=== PATIENT | female | born 1975 | race Caucasian/White ===

== ENCOUNTER 2022-11-04 09:52 | Inpatient (IN) | payer BC ==
--- NOTE | 2022-11-04 11:36 | ED ---
Anxiety HPI - General Chief Complaint: Anxiety Stated Complaint: Anxiety Time Seen by Provider: 11/04/22 11:24 Source: patient, RN notes reviewed Mode of arrival: ambulatory - History of Present Illness Initial Comments: Patient is a 46-year-old female presenting to the emergency room with complaints of feeling overwhelmed, tearful and anxious. She reports that she has had had no significant sleep in the last 72 hours. She states that she does follow with a therapist and primary care provider who prescribes Lexapro. Her last dose increase was in March of last year. She has not had any recent dose changes or adjunct therapy. She reports the symptoms she is experiencing now are similar to what she experienced when she had a titration of her medication in March. She is estranged from most of her family and does report some increased stress and overwhelmed feeling regarding her family situation. She denies any suicidal thoughts, homicidal thoughts, hallucinations or delusions. With the exception of her past medical diagnoses of depression, anxiety, PTSD and ADHD she has no other significant past medical history. - Related Data Home Medications: Home Medications Medication Instructions Recorded Confirmed Albuterol Sulfate [Albuterol 1 puff PO RT-Q4H PRN 11/04/22 11/04/22 Sulfate Hfa] Buprenorphine/Naloxone 8Mg/2Mg 0.33 film SL BID 11/04/22 11/04/22 [Suboxone 8-2Mg Film] Citalopram Hydrobromide [CeleXA] 40 mg PO HS 11/04/22 11/04/22 Dextroamphetamine/Amphetamine 30 mg PO BID 11/04/22 11/04/22 [Adderall] Montelukast [Singulair] 10 mg PO DAILY 11/04/22 11/04/22 Allergies/Adverse Reactions: Allergies Allergy/AdvReac Type Severity Reaction Status Date / Time No Known Allergies Allergy Verified 11/04/22 10:26 Review of Systems ROS Statement: Those systems with pertinent positive or pertinent negative responses have been documented in the HPI. ROS Other: All systems not noted in ROS Statement are negative. Past Medical History Past Medical History: No Reported History History of Any Multi-Drug Resistant Organisms: None Reported Past Surgical History: Section, Orthopedic Surgery, Tonsillectomy Additional Past Surgical History / Comment(s): rt foot Past Psychological History: ADD/ADHD, Anxiety, Depression, PTSD Smoking Status: Never smoker Past Alcohol Use History: None Reported Past Drug Use History: None Reported General Exam Limitations: no limitations General appearance: alert, in no apparent distress Head exam: Present: atraumatic, normocephalic, normal inspection Eye exam: Present: normal appearance, PERRL, EOMI. Absent: scleral icterus, conjunctival injection, periorbital swelling ENT exam: Present: normal exam, mucous membranes moist Neck exam: Present: normal inspection, full ROM Respiratory exam: Present: normal lung sounds bilaterally. Absent: respiratory distress, wheezes, rales, rhonchi, stridor Cardiovascular Exam: Present: normal rhythm, tachycardia (mild), normal heart sounds. Absent: systolic murmur, diastolic murmur, rubs, gallop, clicks GI/Abdominal exam: Present: soft, normal bowel sounds. Absent: distended, tenderness, guarding, rebound, rigid Extremities exam: Present: normal inspection. Absent: pedal edema, joint swelling Back exam: Present: normal inspection, full ROM Neurological exam: Present: alert, oriented X3, CN II-XII intact Psychiatric exam: Present: depressed, anxious. Absent: suicidal ideation Expanded Focused psych exam: Present: flight of ideas Skin exam: Present: warm, dry, intact, normal color. Absent: rash Course Vital Signs 11/04/22 10:22 Temperature 98.1 F Pulse Rate 115 H Respiratory 20 Rate Blood Pressure 147/58 O2 Sat by Pulse 97 Oximetry Medical Decision Making - Medical Decision Making Was pt. sent in by a medical professional or institution (, PA, ACCOUNTING DIRECTOR, urgent care, hospital, or senior care...) When possible be specific @ -No Did you speak to anyone other than the patient for history (EMS, parent, family, police, friend...)? What history was obtained from this source @ -No Did you review nursing and triage notes (agree or disagree)? Why? @ -I reviewed and agree with nursing and triage notes Were old charts reviewed (outside hosp., previous admission, EMS record, old EKG, old radiological studies, urgent care reports/EKG's, senior care records)? Report findings @ -No old charts were reviewed Differential Diagnosis (chest pain, altered mental status, abdominal pain women, abdominal pain men, vaginal bleeding, weakness, fever, dyspnea, syncope, hea dache, dizziness, GI bleed, back pain, seizure, CVA, palpatations, mental health, musculoskeletal)? @- Differential Mental Health Depression, anxiety, bipolar, psychosis, schizophrenia, borderline personality, situational depression, adjustment disorder, behavioral disorder, brain tumor, malingering, substance abuse, encephalopathy, medication reaction, dementia, hypothyroidism, degenerative neurologic disorder, lupus.... This is not meant to be all-inclusive list EKG interpreted by me (3pts min.). @ -None done X-rays interpreted by me (1pt min.). @ -None done CT interpreted by me (1pt min.). @ -None done U/S interpreted by me (1pt. min.). @ -None done What testing was considered but not performed or refused? (CT, X-rays, U/S, labs)? Why? @ -None What meds were considered but not given or refused? Why? @ -None Did you discuss the management of the patient with other professionals (professionals i.e. , PA, ACCOUNTING DIRECTOR, lab, RT, psych nurse, social sciences professor, tennis coach, teacher, chemistry technical officer, patient case coordinator)? Give summary @ -Yes, spoke with EPS nurse regarding her evaluation and recommendation of admission to inpatient psychiatric unit. Was smoking cessation discussed for >3mins.? @ -No Was critical care preformed (if so, how long)? @ -No Were there social determinants of health that impacted care today? How? (Homelessness, low income, unemployed, alcoholism, drug addiction, transportation, low edu. Level, literacy, decrease access to med. care, penitentiary, rehab)? @ -No Was there de-escalation of care discussed even if they declined (Discuss DNR or withdrawal of care, Hospice)? DNR status @ -No What co-morbidities impacted this encounter? (DM, HTN, Smoking, COPD, CAD, Cancer, CVA, ARF, Chemo, Hep., AIDS, mental health diagnosis, sleep apnea, morbid obesity)? @ -History of depression with anxiety Was patient admitted / discharged? Hospital course, mention meds given and route, prescriptions, significant lab abnormalities, going to OR and other pertinent info. @ -46-year-old female presenting to the emergency room with complaints of feeling overwhelmed, tearful and very anxious with lack of sleep over the last 24 hours. No suicidal thoughts, homicidal thoughts, hallucinations or delusions. Currently taking her SSRI as prescribed. Will obtain standard testing for psychiatric eval with urine drug screen along with breath alcohol level. No indication for any other diagnostic imaging or laboratory studies. Breath alcohol level 0.00. Patient placed in green psychiatric down with prolonging was removed. Will closely from a medical standpoint for psychiatric evaluation and maintain safety. Drug screen positive for THC. EPS evaluation completed and patient to be admitted to [facility] for further evaluation and treatment of severe depression with anxiety. Covid test negative. Will discharge in stable condition for admission to psychiatric unit for inpat ient treatment for severe depression with anxiety. Undiagnosed new problem with uncertain prognosis? @ -No Drug Therapy requiring intensive monitoring for toxicity (Heparin, Nitro, Insulin, Cardizem)? @ -No Were any procedures done? @ -No Diagnosis/symptom? @ -Depression with anxiety Acute, or Chronic, or Acute on Chronic? @ -Acute on chronic Uncomplicated (without systemic symptoms) or Complicated (systemic symptoms)? @ -Complicated Side effects of treatment? @ -No Exacerbation, Progression, or Severe Exacerbation? @ -Severe exacerbation Poses a threat to life or bodily function? How? (Chest pain, [place], [place], pneumonia, PE, COPD, DKA, ARF, appy, cholecystitis, CVA, Diverticulitis, Homicidal, Suicidal, threat to staff... and all critical care pts) @ -Yes, at risk for self harm. Case discussed with Dr. Pierce. - Lab Data Lab Results 11/04/22 11/04/22 Range/Units 11:54 15:00 Urine Opiates Screen Not Detected (NotDetected) Ur Oxycodone Screen Not Detected (NotDetected) Urine Methadone Screen Not Detected (NotDetected) Ur Propoxyphene Screen Not Detected (NotDetected) Ur Barbiturates Screen Not Detected (NotDetected) U Tricyclic Antidepress Not Detected (NotDetected) Ur Phencyclidine Scrn Not Detected (NotDetected) Ur Amphetamines Screen Not Detected (NotDetected) U Methamphetamines Scrn Not Detected (NotDetected) U Benzodiazepines Scrn Not Detected (NotDetected) Urine Cocaine Screen Not Detected (NotDetected) U Marijuana (THC) Screen Detected H (NotDetected) Coronavirus (PCR) Not Detected (Not Detectd) Disposition Clinical Impression: Anxiety and depression Disposition: TRANSFER TO PSYCH HOSP/UNIT Condition: Fair Is patient prescribed a controlled substance at d/c from ED?: No Referrals: None,Stated [Primary Care Provider] - 1-2 days Time of Disposition: 16:22 - Out of Hospital Transfer - Req. Specs Out of Hospital Transfer - Requested Specifics: Psychiatric Non-ICU ([facility])
[2022-11-04 12:46] LABS: Amphetamine Screen,Urine Not Detected (NotDetected); Barbiturate Screen,Urine Not Detected (NotDetected); Benzodiazepines Screen,Urine Not Detected (NotDetected); Cocaine Screen,Urine Not Detected (NotDetected); Methadone Screen, Urine Not Detected (NotDetected); Opiate Screen,Urine Not Detected (NotDetected); Oxycodone Screen, Urine Not Detected (NotDetected); Phencyclidine Screen,Urine Not Detected (NotDetected); Tricyclic Antidepressant,Urine Not Detected (NotDetected); Urn Cannabinoid Scrn Detected (NotDetected)
[2022-11-04] MEDS ORDERED: MAGNESIUM HYDROXIDE 2,400 MG/10 ML CUP PO PRN (22:09)
[2022-11-04] MEDS ORDERED: LORazepam 2 MG/ML INJ IM PRN (22:14)
[2022-11-04] MEDS ORDERED: LORazepam 1 MG TAB PO PRN (22:14)
[2022-11-04 23:37] LABS: Appearance,Urine Clear (Clear); Bacteria,Urine Rare /hpf; Bilirubin,Urine Negative (Negative); Blood,Urine Small (Negative); Color,Urine Light Yellow; Glucose,Urine (UA) Negative (Negative); Ketones,Urine 1+ (Negative); Leukocyte Esterase,Urine Negative (Negative); Nitrite,Urine Negative (Negative); PH, Urine 5.5 (5.0-8.0); Protein,Urine Negative (Negative); RBC,Urine 2 /hpf (0-5); Specific Gravity,Urine 1.005 (1.001-1.035); Squamous Epithelial Cell,Urine 1 /hpf (0-4); Urobilinogen,Urine <2.0 mg/dL (<2.0); WBC,Urine 1 /hpf (0-5)
[2022-11-05 09:41] LABS: Anisocytosis Slight; Basophils % (A) 0 %; Eosinophils # (A) 0.2 k/uL (0-0.7); Eosinophils % (A) 2 %; HGB 11.3 gm/dL (11.4-16.0); Hypochromasia Moderate; Lymphocytes # (A) 3.5 k/uL (1.0-4.8); Lymphocytes % (A) 26 %; MCH 25.4 pg (25.0-35.0); MCHC 31.4 g/dL (31.0-37.0); MCV 80.9 fL (80.0-100.0); Mean Platelet Volume 7.6; Monocytes # (A) 0.6 k/uL (0-1.0); Monocytes % (A) 5 %; Neutrophils % (A) 67 %; Platelet Count 385 k/uL (150-450); RBC 4.45 m/uL (3.80-5.40); RDW 17.1 % (11.5-15.5); WBC 13.5 k/uL (3.8-10.6)
[2022-11-05 09:54] LABS: ALT 58 U/L (4-34); AST 38 U/L (14-36); African American GFR (CKD) >90 (>60 ml/min/1.73 sqM); Albumin 4.7 g/dL (3.5-5.0); Alkaline Phosphatase 94 U/L (38-126); Anion Gap 12 mmol/L; Blood Urea Nitrogen 10 mg/dL (7-17); Calcium 9.4 mg/dL (8.4-10.2); Carbon Dioxide 26 mmol/L (22-30); Chloride 101 mmol/L (98-107); Glucose 108 mg/dL (74-99); Non-African American GFR(CKD) >90 (>60 ml/min/1.73 sqM); Potassium 4.3 mmol/L (3.5-5.1); Sodium 139 mmol/L (137-145); Total Bilirubin 0.4 mg/dL (0.2-1.3); Total Protein 8.1 g/dL (6.3-8.2)
[2022-11-05] MEDS: BUPRENORPHINE-NALOX 8-2 MG TAB 1 EACH TAB.SUBL SL SCH ×2 (10:12→21:20)
[2022-11-05] MEDS: buPROPion XL 150 MG TAB.ER.24H PO SCH (10:15)
[2022-11-05] MEDS: MONTELUKAST 10 MG TAB PO SCH (10:15)
[2022-11-05] MEDS: busPIRone HCl 5 MG TAB PO SCH ×2 (10:15→21:15)
--- NOTE | 2022-11-05 10:31 | P.HP ---
Psychiatric H&P - . H&P Date: 11/05/22 History & Physical: Allergies Allergy/AdvReac Type Severity Reaction Status Date / Time No Known Allergies Allergy Verified 11/04/22 10:26 Vital Signs Temp 98.3 F 11/04/22 23:47 Pulse 103 H 11/05/22 00:33 Resp 16 11/05/22 00:33 BP 148/65 11/04/22 23:47 Pulse Ox 98 11/04/22 23:47 FiO2 Intake & Output 11/04/22 11/05/22 11/05/22 18:59 06:59 18:59 Weight 90.718 kg 87.657 kg 88.5 kg Other: Voiding Method Toilet Laboratory Last Values WBC 13.5 k/uL (3.8-10.6) H 11/05/22 09:13 RBC 4.45 m/uL (3.80-5.40) 11/05/22 09:13 Hgb 11.3 gm/dL (11.4-16.0) L 11/05/22 09:13 Hct 36.0 % (34.0-46.0) 11/05/22 09:13 MCV 80.9 fL (80.0-100.0) 11/05/22 09:13 MCH 25.4 pg (25.0-35.0) 11/05/22 09:13 MCHC 31.4 g/dL (31.0-37.0) 11/05/22 09:13 RDW 17.1 % (11.5-15.5) H 11/05/22 09:13 Plt Count 385 k/uL (150-450) 11/05/22 09:13 MPV 7.6 11/05/22 09:13 Neutrophils % 67 % 11/05/22 09:13 Lymphocytes % 26 % 11/05/22 09:13 Monocytes % 5 % 11/05/22 09:13 Eosinophils % 2 % 11/05/22 09:13 Basophils % 0 % 11/05/22 09:13 Neutrophils # 9.0 k/uL (1.3-7.7) H 11/05/22 09:13 Lymphocytes # 3.5 k/uL (1.0-4.8) 11/05/22 09:13 Monocytes # 0.6 k/uL (0-1.0) 11/05/22 09:13 Eosinophils # 0.2 k/uL (0-0.7) 11/05/22 09:13 Basophils # 0.0 k/uL (0-0.2) 11/05/22 09:13 Hypochromasia Moderate 11/05/22 09:13 Anisocytosis Slight 11/05/22 09:13 Sodium 139 mmol/L (137-145) 11/05/22 09:13 Potassium 4.3 mmol/L (3.5-5.1) 11/05/22 09:13 Chloride 101 mmol/L (98-107) 11/05/22 09:13 Carbon Dioxide 26 mmol/L (22-30) 11/05/22 09:13 Anion Gap 12 mmol/L 11/05/22 09:13 BUN 10 mg/dL (7-17) 11/05/22 09:13 Creatinine 0.58 mg/dL (0.52-1.04) 11/05/22 09:13 Est GFR (CKD-EPI)AfAm >90 (>60 ml/min/1.73 sqM) 11/05/22 09:13 Est GFR (CKD-EPI)NonAf >90 (>60 ml/min/1.73 sqM) 11/05/22 09:13 Glucose 108 mg/dL (74-99) H 11/05/22 09:13 Calcium 9.4 mg/dL (8.4-10.2) 11/05/22 09:13 Total Bilirubin 0.4 mg/dL (0.2-1.3) 11/05/22 09:13 AST 38 U/L (14-36) H 11/05/22 09:13 ALT 58 U/L (4-34) H 11/05/22 09:13 Alkaline Phosphatase 94 U/L (38-126) 11/05/22 09:13 Total Protein 8.1 g/dL (6.3-8.2) 11/05/22 09:13 Albumin 4.7 g/dL (3.5-5.0) 11/05/22 09:13 Urine Color Light Yellow 11/04/22 22:45 Urine Appearance Clear (Clear) 11/04/22 22:45 Urine pH 5.5 (5.0-8.0) 11/04/22 22:45 Ur Specific [place] 1.005 (1.001-1.035) 11/04/22 22:45 Urine Protein Negative (Negative) 11/04/22 22:45 Urine Glucose (UA) Negative (Negative) 11/04/22 22:45 Urine Ketones 1+ (Negative) H 11/04/22 22:45 Urine Blood Small (Negative) H 11/04/22 22:45 Urine Nitrite Negative (Negative) 11/04/22 22:45 Urine Bilirubin Negative (Negative) 11/04/22 22:45 Urine Urobilinogen <2.0 mg/dL (<2.0) 11/04/22 22:45 Ur Leukocyte Esterase Negative (Negative) 11/04/22 22:45 Urine RBC 2 /hpf (0-5) 11/04/22 22:45 Urine WBC 1 /hpf (0-5) 11/04/22 22:45 Ur Squamous Epith Cells 1 /hpf (0-4) 11/04/22 22:45 Urine Bacteria Rare /hpf (None) H 11/04/22 22:45 Urine Opiates Screen Not Detected (NotDetected) 11/04/22 11:54 Ur Oxycodone Screen Not Detected (NotDetected) 11/04/22 11:54 Urine Methadone Screen Not Detected (NotDetected) 11/04/22 11:54 Ur Propoxyphene Screen Not Detected (NotDetected) 11/04/22 11:54 Ur Barbiturates Screen Not Detected (NotDetected) 11/04/22 11:54 U Tricyclic Antidepress Not Detected (NotDetected) 11/04/22 11:54 Ur Phencyclidine Scrn Not Detected (NotDetected) 11/04/22 11:54 Ur Amphetamines Screen Not Detected (NotDetected) 11/04/22 11:54 U Methamphetamines Scrn Not Detected (NotDetected) 11/04/22 11:54 U Benzodiazepines Scrn Not Detected (NotDetected) 11/04/22 11:54 Urine Cocaine Screen Not Detected (NotDetected) 11/04/22 11:54 U Marijuana (THC) Screen Detected (NotDetected) H 11/04/22 11:54 Coronavirus (PCR) Not Detected (Not Detectd) 11/04/22 15:00 11/05/22 10:16 Patient is a 46-year-old female presenting to the emergency room with complaints of feeling overwhelmed, tearful and anxious. She reports that she has had had no significant sleep in the last 72 hours. She states that she does follow with a therapist and primary care provider who prescribes Lexapro. Her last dose increase was in March of last year. She has not had any recent dose changes or adjunct therapy. In addition to the Lexapro she takes Adderall IR 30 mg twice a day and Suboxone sublingual 12/27 she takes half of it 3 times a day She reports the symptoms she is experiencing now are similar to what she experienced when she had a titration of her medication in March. Current stressors: She is estranged from most of her family and does report some increased stress and overwhelmed feeling regarding her family situation. Her father recently of cancer and she has been feeling that loss then her 's father suddenly and unexpectedly and her has been under a lot of stress and that made it worse and she feels like their relationship is somewhat estranged but workable. She has been worried about her aunt and uncle who were taking care of her paternal grandmother. Recently she came up to [place] where the headquarters of her job is and noticed that administration are disorganized and part of her feels like she needs to fix all these things. When she was up here she was talking to a cousin who told her she needed to go over to the aunt and uncle's house and try to figure out how to be of help. She did this but couldn't figure out how to help and it was just overwhelming. Current symptoms: She has responded to all these situations into her own codependent need to fix all of them by having a breakdown in depression. She denies any suicidal thoughts, homicidal thoughts, hallucinations or delusions. She feels that the Lexapro is no longer working and in fact she has been taking 40 of Celexa rather than 20 of Lexapro but that's basically the same thing. She is tearful and labile moods irritable and has trouble turning off negative feelings. She also has trouble concentrating she is slow to think trouble retrieving thing she already knows trouble organizing. She also does not feel like doing things, makes herself do them but is difficult, finds no enjoyment in them. She also has a great deal of difficulty with sleep. (These symptoms suggest that she now has deficiency in serotonin norepinephrine and dopamine.) Past history: With the exception of her past medical diagnoses of depression, anxiety, PTSD and ADHD she has no other significant past medical history. She remembers being depressed many years ago but cannot remember what medicine she was tried on. She was somewhat depressed last March but pulled out of that and then is crashed again with all the current stresses. She denies now or in the past any manic episodes or any psychotic symptoms. Social history: The patient was from a troubled family and both her parents struggle with depression and alcohol mom side especially had this bad enough depression to require hospitalizations her dad does not use any alcohol he of cancer recently the patient has mostly male siblings who do not jump in and help out with family issues. She was before for 4 years that man gave her 2 children she has a daughter 25 and a daughter 20 to the 25-year-old is the marriage broke up and now she's been again for 6 years no children with him the 22-year-old daughter struggles with PTSD as well as anxiety and depression. 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 She was only supposed to be in [place] to last and then got involved with the family issues and was offered opportunities stay longer decided to do so but is finding herself more and more dysfunctional. Mental status exam patient has serious sad affect Slow responses Difficulty recalling thing she notes. For example when asked the name the [place] she got leg [place] and [place] but couldn't remember any of the others including [place]. Short-term memory is slightly impaired she only remember 2 and half of 3 objects after 3 minutes. General information is well above average she could name the presidents at least back to [place] but was so slow I cut her off at that point. She was able to spell world backward she started out with and then caught herself and very slowly she got DL paused for a minute got DR hesitated for minute got the OW. Abstract thought is good for cats and snakes she said they're reclusive they are observant and they are sly. To subtract 7 from 93 she had to use her fingers she started by saying 80 then she said no and she couldn't do it so used her fingers and got 86 For the grass looks greener on those thoughts side of the fence she abstracted "look for better things" Diagnosis: Major depression recurrent severe nonpsychotic Plan I believe she needs brief stabilization she needs to get on Wellbutrin to augment the Celexa and she needs BuSpar to augment some going to cut back on the Celexa from 40-30 and at BuSpar which will effectively be similar to increasing to 60 the Wellbutrin will help with focus we do not have Adderall so I'll give for Ritalin 20 3 times a day while in the hospital and we don't have the Suboxone strips so we will use the tablets. We will also add some melatonin for sleep she will probably need trazodone.
[2022-11-05] MEDS: NON FORMULARY DRUG (Dextroamphetamine/Amphetamine [Adderall] 30 MG Tablet) PO SCH ×2 (11:18→21:13)
[2022-11-05] MEDS: ACETAMINOPHEN TAB 325 MG TAB PO PRN (17:27)
[2022-11-05] MEDS ORDERED: CITALOPRAM HYDROBROMIDE 20 MG TAB PO SCH (21:00)
[2022-11-05] MEDS ORDERED: CITALOPRAM HYDROBROMIDE 10 MG TAB PO SCH (21:00)
[2022-11-05] MEDS: MELATONIN 5 MG TABLET PO SCH (21:18)
[2022-11-06] MEDS: MAG HYDROX/AL HYDROX/SIMETH 30 ML CUP PO PRN ×2 (04:09→11:06)
[2022-11-06 07:30] LABS: Chol/HDL Ratio 4.01 Ratio; LDL Cholesterol,Calculated 111.2 mg/dL (0.0-131.0); VLDL Calculation 17.22 mg/dL (5.00-40.00)
[2022-11-06] MEDS: BUPRENORPHINE-NALOX 8-2 MG TAB 1 EACH TAB.SUBL SL SCH ×2 (08:07→21:34)
[2022-11-06] MEDS: busPIRone HCl 5 MG TAB PO SCH (08:08)
[2022-11-06] MEDS: buPROPion XL 150 MG TAB.ER.24H PO SCH (08:08)
[2022-11-06] MEDS: MONTELUKAST 10 MG TAB PO SCH (08:08)
[2022-11-06] MEDS: NON FORMULARY DRUG (Dextroamphetamine/Amphetamine [Adderall] 30 MG Tablet) PO SCH ×2 (08:10→21:37)
--- NOTE | 2022-11-06 12:07 | P.PN ---
Progress Note - Text Progress Note Date: 11/06/22 Interval History: Patient was seen attending group and was directable and agreeable to speak with life insurance underwriter in the office. Currently, the patient reports that she continues to feel depressed and anxious. She reports that she only received approximately 3 hours of sleep last night. She reports that she has been dealing with increased stress and anxiety and has been having a difficult time coping with the passing of her father in February. She does report that she has been more irritable lately. She does state that she has been on her Celexa for an extended period of time (approximately one year), and has felt no significant improvement. The patient also reports that she has been experiencing significant nausea due to her new medications. She is currently not endorsing any suicidal or homicidal ideation, intention, and/or plan. She is not reporting any auditory or visual hallucinations. She is agreeable to discontinuing her Wellbutrin and BuSpar, and starting Remeron for management of depression, insomnia, nausea. Due to concerns for serotonin syndrome, we will cross titrate Celexa with Remeron. Patient expresses understanding. Mental Status Exam: General Appearance: Patient appears to be stated age is alert, directable, and cooperative. Behavior: Patient is calmly seated without any agitated behavior. Speech: Patient's speech is fluent and nonpressured. Mood/Affect: Mood is improving mildly, affect is congruent and constricted. Suicidality/Homicidality: Patient denies having any suicidal or homicidal ideation intent or plan. Perceptions: Patient denies any visual hallucinations and denies any auditory hallucinations Though content/process: There is no evidence of any delusional thought content and thought process is linear and goal-directed. Memory and concentration: AOX3, grossly intact for the purposes of this session Judgment and insight: Improving mildly Vital Signs Temp 98.5 F 11/06/22 08:10 Pulse 95 11/06/22 08:10 Resp 16 11/05/22 00:33 BP 131/60 11/06/22 08:10 Pulse Ox 98 11/04/22 23:47 FiO2 Intake & Output 11/05/22 11/06/22 11/06/22 18:59 06:59 18:59 Weight 88.5 kg Laboratory Results - Last 24 Hours 11/05/22 11/05/22 09:13 09:[address] Glu mg/dL 123 Hemoglobin A1c 5.9 Triglycerides 86.10 Cholesterol 171.00 LDL Cholesterol, Calc 111.2 VLDL Cholesterol, Calc 17.22 HDL Cholesterol 42.60 Cholesterol/HDL Ratio 4.01 Assessment Major depressive disorder, recurrent, severe, without psychotic features ADHD Plan: -Patient continues to meet criteria for inpatient psychiatric admission for symptom stabilization and safety. Patient has signed adult voluntary form and medication consent and was placed in patient's chart. -Medications: Discontinue Wellbutrin and BuSpar. Start Remeron 7.5 mg daily at bedtime for depression/insomnia/nausea. Decrease Celexa to 20 mg by mouth at bedtime for depression. We'll cross titrate with Remeron. -When necessary Ativan for agitation/aggression. -SW on board for discharge planning. Encouraged the patient to participate in milieu.
[2022-11-06] MEDS ORDERED: ALBUTEROL INHALER 60 PUFF/8 GM INHALER (MHU) INHALATION PRN (17:29)
--- NOTE | 2022-11-06 17:31 | P.CONS ---
History of Present Illness - Reason for Consult Consult date: 11/06/22 - History of Present Illness Patient is a 46-year-old female with PMH of asthma that presents the ED for mental health concerns. Patient has been admitted to the mental health unit for further management of symptoms. [facility] has been consulted for medical management of this patient Patient denies any complaints today. Asthma is well controlled with singulair and albuterol as needed. She reports not feeling well today. She complains of nausea but no vomiting. Able to eat a meal today. No changes in urination or bowel habits. No abdominal pain. Drinks alcohol socially. Smokes marijuana occasionally. Denies smoking cigarettes. General: non toxic, no distress, appears at stated age Derm: warm, dry Head: atraumatic, normocephalic, symmetric Eyes: EOMI, no lid lag, anicteric sclera Cardiovascular: S1S2 reg, no murmur Lungs: CTA bilateral, no rhonchi, no rales , no accessory muscle use Ext: no gross muscle atrophy, no edema, no contractures Neuro: CN 2-12 grossly intact, no focal neuro deficits Psych: Alert, oriented, appropriate affect Asthma Nausea Transaminits Leukocytosis Normocytic anemia CBC shows WBC count of 13.5 and hemoglobin of 11.3. CMP shows glucose of 108, AST of 38, ALT of 58. Hemoglobin A1c 5.9. Lipid panel within normal limits. UDS positive for ketones, small blood and rare bacteria. UDS positive for marijuana. COVID-19 negative. Reorder Albuterol inhaler Q4H PRN for SOB/wheezing. Zofran 4 mg PO BID PRN for N/V. Unknown etiology for transaminitis. Obtain acute hepatitis panel. Unknow etiology for leukocytosis. No signs of active infection. Continue to monitor. Transfuse if Hg < 7.0. Past Medical History Past Medical History: Asthma History of Any Multi-Drug Resistant Organisms: None Reported Past Surgical History: Section, Orthopedic Surgery, Tonsillectomy Additional Past Surgical History / Comment(s): 2 rt foot sx, lasix eye surgery Past Anesthesia/Blood Transfusion Reactions: No Reported Reaction Smoking Status: Never smoker - Past Family History Mother Additional Family Medical History / Comment(s): Pancreatitis, Anxiety/Depression Father Family Medical History: Cancer Additional Family Medical History / Comment(s): Bladder Cancer Medications and Allergies Home Medications Medication Instructions Recorded Confirmed Type Albuterol Sulfate [Albuterol 1 puff PO RT-Q4H PRN 11/04/22 11/04/22 History Sulfate Hfa] Buprenorphine/Naloxone 8Mg/2Mg 0.33 film SL BID 11/04/22 11/04/22 History [Suboxone 8-2Mg Film] Citalopram Hydrobromide [CeleXA] 40 mg PO HS 11/04/22 11/04/22 History Dextroamphetamine/Amphetamine 30 mg PO BID 11/04/22 11/04/22 History [Adderall] Montelukast [Singulair] 10 mg PO DAILY 11/04/22 11/04/22 History Allergies Allergy/AdvReac Type Severity Reaction Status Date / Time No Known Allergies Allergy Verified 11/04/22 10:26 Physical Exam Vitals: Vital Signs Temp Pulse BP 11/06/22 08:10 98.5 F 95 131/60 Results CBC & Chem 7: 11/05/22 09:13 11/05/22 09:13
[2022-11-06] MEDS: MELATONIN 5 MG TABLET PO SCH (21:34)
[2022-11-06] MEDS: CITALOPRAM HYDROBROMIDE 10 MG TAB PO SCH (21:34)
[2022-11-06] MEDS: MIRTAZAPINE 15 MG TAB PO SCH (21:37)
[2022-11-07 00:16] LABS: Glucose,Whole Blood 110 mg/dL (70-110)
[2022-11-07] MEDS: ONDANSETRON ODT 4 MG TAB PO PRN ×2 (01:06→09:01)
[2022-11-07] MEDS: ACETAMINOPHEN TAB 325 MG TAB PO PRN ×3 (01:06→13:34)
[2022-11-07] MEDS ORDERED: ONDANSETRON 4 MG/2 ML VIAL IM STA (01:40)
[2022-11-07] MEDS ORDERED: PROMETHAZINE SUPPOSITORY 12.5 MG SUPP RECTAL PRN (08:29)
[2022-11-07] MEDS: BUPRENORPHINE-NALOX 8-2 MG TAB 1 EACH TAB.SUBL SL SCH ×2 (09:01→20:39)
[2022-11-07] MEDS: NON FORMULARY DRUG (Dextroamphetamine/Amphetamine [Adderall] 30 MG Tablet) PO SCH ×2 (09:02→19:38)
[2022-11-07] MEDS: MONTELUKAST 10 MG TAB PO SCH (09:03)
--- NOTE | 2022-11-07 12:00 | P.PN ---
Progress Note - Text Progress Note Date: 11/07/22 Interval History: Patient was seen attending group and was directable and agreeable to speak with tag writer in the office. Currently, the patient expressed that she is experiencing severe nausea, headache, photophobia. She describes a throbbing headache that is starting at the back of her head. The patient reports that she feels extremely nauseous and is unable to take any medications orally. She states that she is unable to fully participate in the psychiatric interview. She reports low mood like to sleep it off today. She is denying any current suicidal or homicidal ideation. She is not reporting any auditory or visual hallucinations. Mental Status Exam: General Appearance: Patient appears to be stated age is alert, however disheveled, and malaised. Behavior: Patient ambulates slowly. Speech: Patient's speech is fluent and nonpressured. Mood/Affect: Mood is "terrible, nauseous." Affect is malaised. Suicidality/Homicidality: Patient denies having any suicidal or homicidal ideation intent or plan. Perceptions: Patient denies any visual hallucinations and denies any auditory hallucinations Though content/process: Patient is quite malaised and is focused on her headache and nausea. Memory and concentration: AOX3, grossly intact for the purposes of this session Judgment and insight: Improving mildly Vital Signs Temp 98.5 F 11/07/22 00:11 Pulse 115 H 11/07/22 00:11 Resp 18 11/07/22 00:11 BP 146/67 11/07/22 00:11 Pulse Ox 96 11/07/22 00:11 FiO2 Laboratory Results - Last 24 Hours 11/07/22 00:14 POC Glucose (mg/dL) 110 POC Glu Transport Coordinator ID Yvette Kim Assessment Major depressive disorder, recurrent, severe, without psychotic features ADHD Plan: -Patient continues to meet criteria for inpatient psychiatric admission for sym ptom stabilization and safety. Patient has signed adult voluntary form and medication consent and was placed in patient's chart. -Medications: Continue Remeron 7.5 mg daily at bedtime for depression/insomnia/nausea. Continue Celexa 20 mg by mouth at bedtime for depression -When necessary Ativan for agitation/aggression. -SW on board for discharge planning. Encouraged the patient to participate in milieu.
[2022-11-07 12:01] LABS: Hepatitis A Antibody IgM Nonreactive; Hepatitis B Core IgM Nonreactive; Hepatitis B Surface Antigen Nonreactive; Hepatitis C IgG Antibody Nonreactive
[2022-11-07] MEDS ORDERED: SUMAtriptan succinate 6 MG/0.5 ML VIAL SQ STA (13:36)
[2022-11-07] MEDS: MIRTAZAPINE 15 MG TAB PO SCH (20:38)
[2022-11-07] MEDS: MELATONIN 5 MG TABLET PO SCH (20:39)
[2022-11-07] MEDS: CITALOPRAM HYDROBROMIDE 10 MG TAB PO SCH (20:39)
[2022-11-08 06:47] VITALS: RESP 16
[2022-11-08] MEDS: BUPRENORPHINE-NALOX 8-2 MG TAB 1 EACH TAB.SUBL SL SCH ×2 (08:34→21:07)
[2022-11-08] MEDS: MONTELUKAST 10 MG TAB PO SCH (08:34)
[2022-11-08] MEDS: NON FORMULARY DRUG (Dextroamphetamine/Amphetamine [Adderall] 30 MG Tablet) PO SCH ×2 (08:39→20:50)
[2022-11-08] MEDS ORDERED: SUMAtriptan succinate 25 MG TAB PO PRN (11:18)
--- NOTE | 2022-11-08 12:12 | P.PN ---
Progress Note - Text Progress Note Date: 11/08/22 Interval History: Patient was seen in her room and was agreeable to speak with the functional tester typewriters in her room. Patient reports that she is feeling significantly better today after the administration of Imitrex yesterday. She continues to report some residual headache, photosensitivity, and nausea however states that it is much more tolerable today. She is currently not reporting any suicidal or homicidal ideation, intention, and/or plan. She is not reporting any auditory or visual hallucinations. She reports no paranoia or other delusions. She reports that she was able to sleep well last night after taking the Remeron. She does express anxiety in regards her discharge situation as she would be moving down to [place]. She is otherwise not reporting any acute concerns to this provider. Mental Status Exam: General Appearance: Patient appears to be stated age is alert, directable, and cooperative. Fair Hygiene and grooming. Behavior: Patient has good eye contact and normal psychomotor activity. Speech: Patient's speech is fluent and nonpressured. Mood/Affect: Mood is "better today." Affect is euthymic. Suicidality/Homicidality: Patient denies having any suicidal or homicidal ideation intent or plan. Perceptions: Patient denies any visual hallucinations and denies any auditory hallucinations Though content/process: No delusional thought content is endorsed. Thought process appears to be linear and logical in short conversation. Memory and concentration: AOX3, grossly intact for the purposes of this session Judgment and insight: Improving mildly Vital Signs Temp 97.7 F 11/08/22 06:14 Pulse 104 H 11/08/22 06:14 Resp 16 11/08/22 06:14 BP 137/77 11/08/22 06:14 Pulse Ox 96 11/07/22 00:11 FiO2 Assessment Major depressive disorder, recurrent, severe, without psychotic features ADHD Plan: -Patient continues to meet criteria for inpatient psychiatric admission for symptom stabilization and safety. Patient has signed adult voluntary form and medication consent and was placed in patient's chart. -Medications: Increase Remeron to 15 mg daily at bedtime for depression/insomnia/nausea. Continue Celexa 20 mg by mouth at bedtime for depression -When necessary, Imitrex for migraines -When necessary Ativan for agitation/aggression. -SW on board for discharge planning. Encouraged the patient to participate in milieu.
[2022-11-08] MEDS ORDERED: ONDANSETRON 4 MG/2 ML VIAL IM PRN (12:24)
[2022-11-08] MEDS: ACETAMINOPHEN TAB 325 MG TAB PO PRN (14:49)
[2022-11-08] MEDS: CITALOPRAM HYDROBROMIDE 10 MG TAB PO SCH (20:49)
[2022-11-08] MEDS: MELATONIN 5 MG TABLET PO SCH (20:50)
[2022-11-08] MEDS ORDERED: MIRTAZAPINE 15 MG TAB PO SCH (21:00)
[2022-11-09] MEDS: ONDANSETRON ODT 4 MG TAB PO PRN (01:10)
[2022-11-09 06:58] VITALS: BP 136/65; PULSE 88; TEMP 98.1
[2022-11-09] MEDS: MONTELUKAST 10 MG TAB PO SCH (08:43)
[2022-11-09] MEDS: NON FORMULARY DRUG (Dextroamphetamine/Amphetamine [Adderall] 30 MG Tablet) PO SCH (09:02)
[2022-11-09] MEDS: BUPRENORPHINE-NALOX 8-2 MG TAB 1 EACH TAB.SUBL SL SCH (09:03)
--- NOTE | 2022-11-09 11:31 | P.DS ---
Providers Date of admission: 11/04/22 22:03 Expected date of discharge: 11/09/22 Attending physician: Pedrito Bello MD Consults: 11/04/22 22:09 Consult Physician Routine Consulting Provider: Shawna Aguilera Consult Reason/Comments: medical management Do you want consulting provider notified?: Yes Primary care physician: Stated None - Discharge Diagnosis(es) (1) Major depressive disorder, recurrent episode, severe with anxious distress Current Visit: Yes Status: Acute Priority: High (2) ADHD Current Visit: Yes Status: Suspected Priority: Low Hospital Course: Admission HPI: Initial psychiatric evaluation was completed by Dr. Sotomayor 11/05/2022 who wrote: "Patient is a 46-year-old female presenting to the emergency room with complaints of feeling overwhelmed, tearful and anxious. She reports that she has had had no significant sleep in the last 72 hours. She states that she does follow with a therapist and primary care provider who prescribes Lexapro. Her last dose increase was in March of last year. She has not had any recent dose changes or adjunct therapy. In addition to the Lexapro she takes Adderall IR 30 mg twice a day and Suboxone sublingual 12/27 she takes half of it 3 times a day She reports the symptoms she is experiencing now are similar to what she experienced when she had a titration of her medication in March. Current stressors: She is estranged from most of her family and does report some increased stress and overwhelmed feeling regarding her family situation. Her father recently of cancer and she has been feeling that loss then her 's father suddenly and unexpectedly and her has been under a lot of stress and that made it worse and she feels like their relationship is somewhat estranged but workable. She has been worried about her aunt and uncle who were taking care of her paternal grandmother. Recently she came up to [employer] where the headquarters of her job is and noticed that administration are disorganized and part of her feels like she needs to fix all these things. When she was up here she was talking to a cousin who told her she needed to go over to the aunt and uncle's house and try to figure out how to be of help. She did this but couldn't figure out how to help and it was just overwhelming. Current symptoms: She has responded to all these situations into her own codependent need to fix all of them by having a breakdown in depression. She denies any suicidal thoughts, homicidal thoughts, hallucinations or delusions. She feels that the Lexapro is no longer working and in fact she has been taking 40 of Celexa rather than 20 of Lexapro but that's basically the same thing. She is tearful and labile moods irritable and has trouble turning off negative feelings. She also has trouble concentrating she is slow to think trouble retrieving thing she already knows trouble organizing. She also does not feel like doing things, makes herself do them but is difficult, finds no enjoyment in them. She also has a great deal of difficulty with sleep. (These symptoms suggest that she now has deficiency in serotonin norepinephrine and dopamine.) Hospital course: Upon admission to the unit patient was initially presenting as sad, overwhelmed, and anxious. Patient was however directable and agreeable to commence treatment. Patient got along well with other patients on the unit and followed unit protocol. Patient was compliant with the medications and denied any side effects throughout hospital course. Patient was started on buspar, celexa, and wellbutrin initially however due to concenrs for anxiety and nausea, she was switched to just celexa and remeron. Patient spoke of her stressors and engaged in therapy both group and individual. Patient was also seen by medical team for history and physical exam. The patient would experience significant nausea and migraine like headaches. She was given imitrex and zofran which provided relief. The patient was intermittently adherent with her suboxone which could lead to withdrawal symptoms. Patient was educated on this and expressed understanding. On the day of discharge, the patient is not reporting any suicidal or homicidal ideation, intention, and/or plan. She reports a desire to return back to [place] for continued therapy and outpatient treatment. She reports no access to firearms or other weapons. She has been observed by staff to sleep for approximately 6.5 hours at night despite reporting poor sleep. She reports no auditory or visual hallucinations. She denies any paranoia or other delusions. The patient did express a desire for more in-depth treatment however was educated on the difference between inpatient stabilization and outpatient psychotherapy and psychiatric care. She remains future and goal oriented with a strong desire to go home. In regards her general medical problems, the patient reports that she continues to express some mild nausea and headache however reports that it is tolerable. The patient does not have a significant history of substance abuse however was counseled at great length and abstaining from tobacco, alcohol, marijuana, and illicit drugs. She was encouraged to follow-up with their outpatient appointments for primary care as well as for mental health. Prior to discharge, family meeting will be arranged by social human services assistants to answer any questions and ensure safety. Mental status exam: General Appearance: Patient appears to be stated age is alert, pleasant, and cooperative. Patient is in no acute distress and has fair hygiene and grooming Behavior: Patient is calmly seated without any agitated behavior. Eye contact is appropriate. Speech: Patient's speech is fluent and nonpressured. Mood/Affect: Patient reports their mood is "I feel little off physically but okay to go", affect is congruent and euthymic. Suicidality/Homicidality: Patient reports no suicidal or homicidal ideation. Perceptions: Patient denies any auditory or visual hallucinations. Though content/process: There is no evidence of any delusional thought content and thought process is linear and goal-directed. Patient is future and goal oriented Memory and concentration: AOX3, grossly intact for the purposes of this session. Can spell "WORLD" backwards correctly. Judgment and insight: Improved Impression: Major depressive disorder, recurrent, severe, with anxious distress ADHD Plan: -Continue with discharge today as patient has improved and stabilized psychiatrically and is not currently an imminent threat to herself and/or others. Patient is gainfully employed, has supportive family, and is future and goal oriented. -Continue medications: Melatonin 5 mg at bedtime for insomnia Remeron 15 mg by mouth at bedtime for nausea/insomnia/depression Celexa 20 mg by mouth daily for depression/anxiety Zofran for nausea as needed, Imitrex for migraine headache as needed -Recommend outpatient provider to manage Adderall prescription. Discussed with patient risk for QTc prolongation and serotonin syndrome. -We discussed the risks of serotonin syndrome and advised the patient to go to the emergency department if she experiences such symptoms of hot flashes, palpitations, confusion, and muscle twitching -Patient was counseled on the need for medication compliance and appropriate follow-up at mental health and also primary care for medical issues. Patient verbalized understanding and agreed. -Social work to arrange for and conduct family meeting to ensure safety upon discharge and answer any questions/concerns. Social work also to arrange for patients follow up appointments for psychiatric care along with follow up with primary care provider. -Patient counseled on abstaining from recreational drugs and marijuana and alcohol. Was informed/educated on the adverse effects on their physical and mental health. Patient verbally agreed and understood. -Patient was instructed to return to the hospital or seek immediate medical care if their psychiatric or medical symptoms do worsen or reoccur. -Psychoeducation and supportive therapy provided to patient. Risks and benefits of pharmacological treatment versus the risks and benefits of nontreatment weighed and discussed. Informed consent discussion held. Common side effects of psychotropics discussed such as, but not limited to headache, GI disturbance, sexual dysfunction, movement disorders, sedation, and orthostatic hypotension. Life threatening and blackbox warnings of prescribed medications also discussed. Potential risks of operating a vehicle or heavy machinery discussed with patient at length. Advised on importance of compliance and a reliable and responsible manner. Patient advised to review FDA consumer labeling of all medications prior to taking. Patient verbalized understanding of potential risks, and agrees with current treatment plan. Patient advised to medically contact physician/emergency personnel if any acute changes in condition occur. Vital Signs Temp 98.1 F 11/09/22 06:31 Pulse 88 11/09/22 06:31 Resp 16 11/09/22 06:31 BP 136/65 11/09/22 06:31 Pulse Ox 96 11/07/22 00:11 FiO2 Laboratory Results WBC 13.5 k/uL (3.8-10.6) H 11/05/22 09:13 RBC 4.45 m/uL (3.80-5.40) 11/05/22 09:13 Hgb 11.3 gm/dL (11.4-16.0) L 11/05/22 09:13 Hct 36.0 % (34.0-46.0) 11/05/22 09:13 MCV 80.9 fL (80.0-100.0) 11/05/22 09:13 MCH 25.4 pg (25.0-35.0) 11/05/22 09:13 MCHC 31.4 g/dL (31.0-37.0) 11/05/22 09:13 RDW 17.1 % (11.5-15.5) H 11/05/22 09:13 Plt Count 385 k/uL (150-450) 11/05/22 09:13 MPV 7.6 11/05/22 09:13 Neutrophils % 67 % 11/05/22 09:13 Lymphocytes % 26 % 11/05/22 09:13 Monocytes % 5 % 11/05/22 09:13 Eosinophils % 2 % 11/05/22 09:13 Basophils % 0 % 11/05/22 09:13 Neutrophils # 9.0 k/uL (1.3-7.7) H 11/05/22 09:13 Lymphocytes # 3.5 k/uL (1.0-4.8) 11/05/22 09:13 Monocytes # 0.6 k/uL (0-1.0) 11/05/22 09:13 Eosinophils # 0.2 k/uL (0-0.7) 11/05/22 09:13 Basophils # 0.0 k/uL (0-0.2) 11/05/22 09:13 Hypochromasia Moderate 11/05/22 09:13 Anisocytosis Slight 11/05/22 09:13 Sodium 139 mmol/L (137-145) 11/05/22 09:13 Potassium 4.3 mmol/L (3.5-5.1) 11/05/22 09:13 Chloride 101 mmol/L (98-107) 11/05/22 09:13 Carbon Dioxide 26 mmol/L (22-30) 11/05/22 09:13 Anion Gap 12 mmol/L 11/05/22 09:13 BUN 10 mg/dL (7-17) 11/05/22 09:13 Creatinine 0.58 mg/dL (0.52-1.04) 11/05/22 09:13 Est GFR (CKD-EPI)AfAm >90 (>60 ml/min/1.73 sqM) 11/05/22 09:13 Est GFR (CKD-EPI)NonAf >90 (>60 ml/min/1.73 sqM) 11/05/22 09:13 Glucose 108 mg/dL (74-99) H 11/05/22 09:13 POC Glucose (mg/dL) 110 mg/dL (70-110) 11/07/22 00:14 POC Glu Lockstitch Lining Setter Yvette Gallo 11/07/22 00:[address] Glu mg/dL 123 mg/dL 11/05/22 09:13 Hemoglobin A1c 5.9 % (<=6.0) 11/05/22 09:13 Calcium 9.4 mg/dL (8.4-10.2) 11/05/22 09:13 Total Bilirubin 0.4 mg/dL (0.2-1.3) 11/05/22 09:13 AST 38 U/L (14-36) H 11/05/22 09:13 ALT 58 U/L (4-34) H 11/05/22 09:13 Alkaline Phosphatase 94 U/L (38-126) 11/05/22 09:13 Total Protein 8.1 g/dL (6.3-8.2) 11/05/22 09:13 Albumin 4.7 g/dL (3.5-5.0) 11/05/22 09:13 Triglycerides 86.10 mg/dL (0.00-149.00) 11/05/22 09:13 Cholesterol 171.00 mg/dL (0.00-200.00) 11/05/22 09:13 LDL Cholesterol, Calc 111.2 mg/dL (0.0-131.0) 11/05/22 09:13 VLDL Cholesterol, Calc 17.22 mg/dL (5.00-40.00) 11/05/22 09:13 HDL Cholesterol 42.60 mg/dL (40.00-60.00) 11/05/22 09:13 Cholesterol/HDL Ratio 4.01 Ratio 11/05/22 09:13 TSH 2.630 mIU/L (0.465-4.680) 11/05/22 09:13 Urine Color Light Yellow 11/04/22 22:45 Urine Appearance Clear (Clear) 11/04/22 22:45 Urine pH 5.5 (5.0-8.0) 11/04/22 22:45 Ur Specific [place] 1.005 (1.001-1.035) 11/04/22 22:45 Urine Protein Negative (Negative) 11/04/22 22:45 Urine Glucose (UA) Negative (Negative) 11/04/22 22:45 Urine Ketones 1+ (Negative) H 11/04/22 22:45 Urine Blood Small (Negative) H 11/04/22 22:45 Urine Nitrite Negative (Negative) 11/04/22 22:45 Urine Bilirubin Negative (Negative) 11/04/22 22:45 Urine Urobilinogen <2.0 mg/dL (<2.0) 11/04/22 22:45 Ur Leukocyte Esterase Negative (Negative) 11/04/22 22:45 Urine RBC 2 /hpf (0-5) 11/04/22 22:45 Urine WBC 1 /hpf (0-5) 11/04/22 22:45 Ur Squamous Epith Cells 1 /hpf (0-4) 11/04/22 22:45 Urine Bacteria Rare /hpf (None) H 11/04/22 22:45 Urine Opiates Screen Not Detected (NotDetected) 11/04/22 11:54 Ur Oxycodone Screen Not Detected (NotDetected) 11/04/22 11:54 Urine Methadone Screen Not Detected (NotDetected) 11/04/22 11:54 Ur Propoxyphene Screen Not Detected (NotDetected) 11/04/22 11:54 Ur Barbiturates Screen Not Detected (NotDetected) 11/04/22 11:54 U Tricyclic Antidepress Not Detected (NotDetected) 11/04/22 11:54 Ur Phencyclidine Scrn Not Detected (NotDetected) 11/04/22 11:54 Ur Amphetamines Screen Not Detected (NotDetected) 11/04/22 11:54 U Methamphetamines Scrn Not Detected (NotDetected) 11/04/22 11:54 U Benzodiazepines Scrn Not Detected (NotDetected) 11/04/22 11:54 Urine Cocaine Screen Not Detected (NotDetected) 11/04/22 11:54 U Marijuana (THC) Screen Detected (NotDetected) H 11/04/22 11:54 Coronavirus (PCR) Not Detected (Not Detectd) 11/04/22 15:00 Hepatitis A IgM Ab Nonreactive 11/07/22 06:33 Hep Bs Antigen Nonreactive 11/07/22 06:33 Hep B Core IgM Ab Nonreactive 11/07/22 06:33 Hep C IgG Ab Nonreactive 11/07/22 06:33 Allergies Allergy/AdvReac Type Severity Reaction Status Date / Time No Known Allergies Allergy Verified 11/04/22 10:26 Patient Condition at Discharge: Stable Plan - Discharge Summary Discharge Rx Participant: No New Discharge Prescriptions: New Melatonin 5 mg PO HS 30 Days #30 tab Buprenorphine-Nalox 8-2 mg Tab [Suboxone 8-2 mg Tab] 0.5 each SL BID tab Citalopram Hydrobromide [CeleXA] 20 mg PO HS 30 Days #60 tab SUMAtriptan succinate [Imitrex] 25 mg PO DAILY PRN 3 Days #3 tab PRN Reason: Migraine Headache Mirtazapine [Remeron] 15 mg PO HS 30 Days #30 tab Ondansetron Odt [Zofran Odt] 4 mg PO Q8HR PRN 3 Days #9 tab PRN Reason: Nausea Continue Montelukast [Singulair] 10 mg PO DAILY Albuterol Sulfate [Albuterol Sulfate Hfa] 1 puff PO RT-Q4H PRN PRN Reason: Shortness Of Breath Dextroamphetamine/Amphetamine [Adderall] 30 mg PO BID Buprenorphine/Naloxone 8Mg/2Mg [Suboxone 8-2Mg Film] 0.33 film SL BID Discontinued Citalopram Hydrobromide [CeleXA] 40 mg PO HS Discharge Medication List Albuterol Sulfate [Albuterol Sulfate Hfa] 1 puff PO RT-Q4H PRN 11/04/22 [History] Buprenorphine/Naloxone 8Mg/2Mg [Suboxone 8-2Mg Film] 0.33 film SL BID 11/04/22 [History] Dextroamphetamine/Amphetamine [Adderall] 30 mg PO BID 11/04/22 [History] Montelukast [Singulair] 10 mg PO DAILY 11/04/22 [History] Buprenorphine-Nalox 8-2 mg Tab [Suboxone 8-2 mg Tab] 0.5 each SL BID tab 11/09/22 [Rx] Citalopram Hydrobromide [CeleXA] 20 mg PO HS 30 Days #60 tab 11/09/22 [Rx] Melatonin 5 mg PO HS 30 Days #30 tab 11/09/22 [Rx] Mirtazapine [Remeron] 15 mg PO HS 30 Days #30 tab 11/09/22 [Rx] Ondansetron Odt [Zofran Odt] 4 mg PO Q8HR PRN 3 Days #9 tab 11/09/22 [Rx] SUMAtriptan succinate [Imitrex] 25 mg PO DAILY PRN 3 Days #3 tab 11/09/22 [Rx] Follow up Appointment(s)/Referral(s): DesireeTeodoro [Other] - 11/14/22 8:00 am (11/14 @ 08:00 Group Therapy 11/14 @ 09:45 with Lulu Knight ) None,Stated [Primary Care Provider] - 1-2 days Patient Instructions/Handouts: Depression (DC), Psychotic Disorder (DC) Activity/Diet/Wound Care/Special Instructions: Avoid the use of street drugs and alcohol. Take all medications as prescribed. When you are in need of refills on your medications, please contact your medical provider and/or outpatient psychiatrist to have this done. Please go to scheduled outpatient appointments for aftercare treatment. If symptoms return or become worse, call the crisis line at and/or go to the nearest emergency room for evaluation. Discharge Disposition: HOME SELF-CARE
== END 2022-11-09 11:48 | disposition home or self-care (01) | DRG 885 ==
LOC: EC 09:52 → 3MHU 22:03
PROVIDERS: ADMIT Psychiatry & Neurology Psychiatry; ATTEND Psychiatry & Neurology Psychiatry
DX: F33.2 Major depressive disorder, recurrent severe without psychotic features (principal); F43.10 Post-traumatic stress disorder, unspecified; F41.9 Anxiety disorder, unspecified; J45.909 Unspecified asthma, uncomplicated; R74.01 Elevation of levels of liver transaminase levels; D72.829 Elevated white blood cell count, unspecified; D64.9 Anemia, unspecified; F90.9 Attention-deficit hyperactivity disorder, unspecified type; Z20.822 Contact with and (suspected) exposure to COVID-19; G43.909 Migraine, unspecified, not intractable, without status migrainosus; G47.00 Insomnia, unspecified; Z79.899 Other long term (current) drug therapy; Z28.310 Unvaccinated for COVID-19; Z63.8 Other specified problems related to primary support group
CPT/HCPCS: 80053; 80061; 80074; 80306; 81001; 82075; 83036; 84443; 85025; 87635; 99284